=== PATIENT | female | born 1940 | race Caucasian/White ===

== ENCOUNTER → 2024-07-14 13:37 | Outpatient (REF) | payer MEDICARE, OTHER, SELFPAY | LOC: RAD 13:37 | PROVIDERS: ATTENDING PHYSICIAN Student in an Organized Health Care Education/Training Program | DX: R09.89 Other specified symptoms and signs involving the circulatory and respiratory systems (principal); Z85.72 Personal history of non-Hodgkin lymphomas; R13.10 Dysphagia, unspecified | CPT/HCPCS: 71046 ==

== ENCOUNTER → 2024-07-16 08:19 | Outpatient (REF) | payer MEDICARE, OTHER, SELFPAY | LOC: RST 08:19 | PROVIDERS: ATTENDING PHYSICIAN Student in an Organized Health Care Education/Training Program; REFERRING PHYSICIAN Otolaryngology | DX: R09.89 Other specified symptoms and signs involving the circulatory and respiratory systems (principal); Z85.72 Personal history of non-Hodgkin lymphomas; R13.10 Dysphagia, unspecified | CPT/HCPCS: 74230; 92611 ==